=== PATIENT | female | born 1965 | race Caucasian/White ===

== ENCOUNTER → 2016-08-03 | Day surgery (SDC) | payer BC, MEDICAID ==
[~2016-08-03] MED LIST: Lactated Ringers 1,000 ML IV SCH; Lidocaine 4% Top Soln 5 ML LTA Syringe ONE; Lidocaine 4% Top Soln 5 ML LTA Syringe TOP ONE; Propofol 200 MG/20 ML SDV IV ONE
[2016-08-03 12:47] VITALS: BP 127/83
--- NOTE | 2016-08-06 08:45 | OR ---
DATE OF OPERATION: 08/03/2016 PREOPERATIVE DIAGNOSIS: EPIGASTRIC PAIN. POSTOPERATIVE DIAGNOSIS: EPIGASTRIC PAIN. SURGEON: Neeraj Mcclelland MD PROCEDURE: EGD. ANESTHESIA: MANAGER CAFE due to chronic pain and narcotic use. COMPLICATIONS: None. SPECIMEN: None. FINDINGS: Normal full length colonoscopy. RECOMMENDATIONS: Medical follow up with Dr. Mcclelland. INDICATIONS: The patient has a history of chronic pain. She has been having midepigastric pain. Negative gallbladder ultrasound has been done. We elected to proceed with EGD. DESCRIPTION OF PROCEDURE: The patient was prepped and draped, placed in left lateral decubitus position. A lubricated Olympus gastroscope was then inserted over a bit advanced cricopharyngeus and easily intubating the esophagus. Esophageal lining was benign in its entire course. The Z-line was crisp and sharp at 40 cm. There was no distal esophagitis, stricturing, ulceration, or Rivero's changes. Scope was advanced into the stomach through the pylorus, into the third portion of the duodenum. This and the duodenal bulb were unremarkable. The scope was brought back into the stomach and retroflexed. The upper fundus and cardia were benign. No signs of any peptic ulcer disease, polyps, mass, or otherwise. Thorough visualization of the antrum showed no lesions. Air was then suctioned. The scope was removed without complication. The patient is stable in the recovery room. JONH /[id number]
== END ==
LOC: CC.SDS 10:09
PROVIDERS: ATTEND Family Medicine
DX: R10.13 Epigastric pain (principal); I10 Essential (primary) hypertension; F41.9 Anxiety disorder, unspecified; F32.9 Major depressive disorder, single episode, unspecified; Z98.890 Other specified postprocedural states; Z79.899 Other long term (current) drug therapy
CPT/HCPCS: 43235; A9270; J2704; J7120